=== PATIENT | female | born 1960 | race African-American/Black ===

== ENCOUNTER → 2020-09-29 | Outpatient (CLI) | payer MEDICARE ==
--- NOTE | 2020-09-30 07:23 | XR ---
EXAMINATION TYPE: XR chest 2V DATE OF EXAM: 09/29/2020 COMPARISON: NONE HISTORY: Shortness of breath TECHNIQUE: Frontal and lateral views of the chest are obtained. FINDINGS: Scattered senescent parenchymal changes noted. Hyperinflation compatible with COPD. No evidence for infiltrate. No evidence for atelectasis. Heart size is stable. There is prominence of the aortic arch and underlying aneurysm is difficult to exclude. Correlate cli nically. No evidence for hilar prominence. Degenerative changes dorsal spine. IMPRESSION: 1. No evidence for acute pulmonary disease. Correlate for aortic aneurysm.
== END | disposition home or self-care (01) ==
LOC: RADXRMAIN 18:00
PROVIDERS: ATTEND Family Medicine
DX: R06.02 Shortness of breath (principal)
CPT/HCPCS: 71046

== ENCOUNTER → 2020-09-30 | Outpatient (CLI) | payer MEDICARE ==
--- NOTE | 2020-09-30 10:59 | CT ---
EXAMINATION TYPE: CT brain wo con DATE OF EXAM: 09/30/2020 COMPARISON: None HISTORY: Dizziness/headache CT DLP: 953.[address] of the brain was performed. The ventricles, basal cisterns and sulci overlying the cerebral convexities demonstrate mild enlargem ent. There is no evidence for intracranial hemorrhage or sulcal effacement. There is decreased attenuation about the periventricular white matter and deep white matter of both c erebral hemispheres, compatible with chronic small vessel ischemia. Differential diagnosis does inclu de demyelination. No mass effects are seen.No midline shift. Osseous calvarium is intact. If symptoms persist consider MRI. IMPRESSION: 1. Age related atrophic and chronic small vessel ischemic change without acute intracranial process s een at this time.
== END | disposition home or self-care (01) ==
LOC: RADCTMAIN 10:15
PROVIDERS: ATTEND Family Medicine
DX: I67.82 Cerebral ischemia (principal)
CPT/HCPCS: 70450

== ENCOUNTER → 2020-09-30 | Outpatient (CLI) | payer MEDICARE ==
--- NOTE | 2020-09-30 12:55 | US ---
EXAMINATION TYPE: US venous doppler duplex LE RT DATE OF EXAM: 09/30/2020 11:00 AM COMPARISON: NONE CLINICAL HISTORY: R79.1 POSITIVE DIMER. Elevated labs, right leg numbness, SIDE PERFORMED: Right TECHNIQUE: The lower extremity deep venous system is examined utilizing real time linear array sonog lucy with graded compression, doppler sonography and color-flow sonography. VESSELS IMAGED: Common Femoral Vein Deep Femoral Vein Greater Saphenous Vein * Femoral Vein Popliteal Vein Small Saphenous Vein * Proximal Calf Veins (* superficial vessels) Right Leg: Negative for DVT. The right common femoral vein could not be compressed in one area due t o patient's pain. IMPRESSION: 1. No evidence of deep venous thrombosis in the right lower extremity veins. The right common femoral vein cannot be compressed in one area due to patient's pain.
== END | disposition home or self-care (01) ==
LOC: RADUSWWP 10:36
PROVIDERS: ATTEND Family Medicine
DX: R79.1 Abnormal coagulation profile (principal)

== ENCOUNTER → 2020-10-10 | Outpatient (CLI) | payer MEDICARE, BC ==
--- NOTE | 2020-10-10 12:34 | US ---
EXAMINATION TYPE: US kidneys/renal and bladder DATE OF EXAM: 10/10/2020 COMPARISON: NONE CLINICAL HISTORY: 60-year-old female N18.30 CKD. TECHNIQUE: Multiple sonographic images of the kidneys and bladder are obtained. FINDINGS: EXAM MEASUREMENTS: Right Kidney: 8.7 x 4.2 x 4.2 cm Left Kidney: 7.4 x 3.2 x 3.8 cm Right Kidney: small in size Left Kidney: small in size Bladder: Underdistention limits its evaluation. Some tumefactive sludge or gravel is noted in the gallbladder. Sonographic Toure sign is reported po sitive. IMPRESSION: 1. No hydronephrosis. Small size of the kidneys suggesting chronic medical renal disease. 2. There is some tumefactive sludge or gravel in the gallbladder. No abnormal distention or surroundi ng fluid. However, incidentally, sonographic Toure sign is reported positive further clinical correl ation recommended for any right upper quadrant pain or concern for acute or chronic cholecystitis. HI DA scan if indicated.
== END | disposition home or self-care (01) ==
LOC: RADUSWWP 08:53
PROVIDERS: ATTEND Family Medicine
DX: N18.30 Chronic kidney disease, stage 3 unspecified (principal)
CPT/HCPCS: 76770

== ENCOUNTER 2020-10-14 11:29 | Inpatient (IN) | payer MEDICARE ==
[2020-10-14] MEDS ORDERED: NITROGLYCERIN OINT 1 INCH/GM PACKET TOPICAL STA (11:48)
[2020-10-14] MEDS ORDERED: ASPIRIN 81 MG PO STA (11:48)
--- NOTE | 2020-10-14 11:58 | ED ---
General Adult HPI - General Chief complaint: Chest Pain Stated complaint: Chest Pain Time Seen by Provider: 10/14/20 11:43 Source: patient, RN notes reviewed Mode of arrival: ambulatory Limitations: no limitations - History of Present Illness Initial comments: Patient is a pleasant 60-year-old female presenting to the emergency Department with complaints of chest discomfort. Onset of symptoms was a couple of days ago. Discomfort is steady and rated 5/10 without radiation. Discomfort is difficult to describe. Patient does have some occasional associated dyspnea. No nausea. No diaphoresis. No history of similar symptoms previously. Patient did have CABG in 2018 however did not have symptoms prior to that. Patient did recently find out that she has gallstones. - Related Data Home Medications Medication Instructions Recorded Confirmed Acetaminophen Tab [Tylenol Tab] 1,000 mg PO BID 10/14/20 10/14/20 Aspirin EC [Ecotrin Low Dose] 81 mg PO DAILY 10/14/20 10/14/20 Atorvastatin [Lipitor] 40 mg PO DAILY 10/14/20 10/14/20 Carvedilol [Coreg] 25 mg PO BID 10/14/20 10/14/20 DULoxetine HCL [Cymbalta] 60 mg PO DAILY 10/14/20 10/14/20 Multivitamins, Thera [Multivitamin 1 tab PO DAILY 10/14/20 10/14/20 (formulary)] NIFEdipine XL [Procardia XL] 60 mg PO DAILY 10/14/20 10/14/20 Topiramate [Topamax] 50 mg PO BID 10/14/20 10/14/20 Allergies Allergy/AdvReac Type Severity Reaction Status Date / Time Iodinated Contrast Media AdvReac Rash/Hives Verified 10/14/20 13:03 Review of Systems ROS Statement: Those systems with pertinent positive or pertinent negative responses have been documented in the HPI. ROS Other: All systems not noted in ROS Statement are negative. Constitutional: Denies: fever Eyes: Denies: eye pain ENT: Denies: ear pain Respiratory: Reports: as per HPI. Denies: cough Cardiovascular: Reports: as per HPI, chest pain Endocrine: Denies: fatigue Gastrointestinal: Reports: as per HPI, abdominal pain Genitourinary: Denies: urgency, dysuria Musculoskeletal: Denies: back pain Skin: Denies: rash Neurological: Denies: weakness Past Medical History Additional Past Medical History / Comment(s): AAA History of Any Multi-Drug Resistant Organisms: None Reported Additional Past Surgical History / Comment(s): AAA repair Past Psychological History: Depression Smoking Status: Never smoker Past Alcohol Use History: None Reported Past Drug Use History: None Reported General Exam Limitations: no limitations General appearance: alert, in no apparent distress Head exam: Present: normocephalic Eye exam: Present: normal appearance Neck exam: Present: normal inspection Respiratory exam: Present: normal lung sounds bilaterally, chest wall tenderness Cardiovascular Exam: Present: regular rate, normal rhythm Expanded Peripheral pulses: 2+: Radial (R), Radial (L), Dorsalis Pedis (R), Dorsalis Pedis (L) GI/Abdominal exam: Present: soft, tenderness (Mild tenderness epigastric and right upper quadrant). Absent: distended Extremities exam: Present: normal inspection. Absent: pedal edema, calf tenderness Neurological exam: Present: alert Psychiatric exam: Present: normal affect, normal mood Skin exam: Present: normal color Course Vital Signs 10/14/20 10/14/20 10/14/20 11:33 11:59 12:42 Temperature 97.9 F Pulse Rate 80 82 57 L Respiratory 18 16 16 Rate Blood Pressure 138/83 146/79 150/85 O2 Sat by Pulse 100 99 98 Oximetry EKG Findings - EKG Comments: EKG Findings:: Normal sinus rhythm with a rate of 80. WV 156. QRS 90. QT 408. QTC 470. Normal axis. RSR V1. No acute ST change. Medical Decision Making - Medical Decision Making Patient was reevaluated and updated. Case was discussed with Dr. Joshua, covering for Dr. Muller who will admit. She would prefer to scan over CT which was ordered. - Lab Data Result diagrams: 10/14/20 11:55 10/14/20 11:55 Lab Results 10/14/20 10/14/20 10/14/20 Range/Units 11:55 11:55 11:55 WBC 3.8 (3.8-10.6) k/uL RBC 4.06 (3.80-5.40) m/uL Hgb 12.4 (11.4-16.0) gm/dL Hct 39.7 (34.0-46.0) % MCV 97.9 (80.0-100.0) fL MCH 30.5 (25.0-35.0) pg MCHC 31.2 (31.0-37.0) g/dL RDW 13.5 (11.5-15.5) % Plt Count 207 (150-450) k/uL MPV 6.8 Neutrophils % 48 % Lymphocytes % 37 % Monocytes % 9 % Eosinophils % 2 % Basophils % 1 % Neutrophils # 1.8 (1.3-7.7) k/uL Lymphocytes # 1.4 (1.0-4.8) k/uL Monocytes # 0.3 (0-1.0) k/uL Eosinophils # 0.1 (0-0.7) k/uL Basophils # 0.0 (0-0.2) k/uL PT 10.9 (9.0-12.0) sec INR 1.0 (<1.2) APTT 24.1 (22.0-30.0) sec D-Dimer 13.75 H (<0.60) mg/L FEU Sodium 144 (137-145) mmol/L Potassium 3.9 (3.5-5.1) mmol/L Chloride 111 H (98-107) mmol/L Carbon Dioxide 22 (22-30) mmol/L Anion Gap 11 mmol/L BUN 18 H (7-17) mg/dL Creatinine 1.81 H (0.52-1.04) mg/dL Est GFR (CKD-EPI)AfAm 34 (>60 ml/min/1.73 sqM) Est GFR (CKD-EPI)NonAf 30 (>60 ml/min/1.73 sqM) Glucose 114 H (74-99) mg/dL Calcium 9.9 (8.4-10.2) mg/dL Magnesium 2.2 (1.6-2.3) mg/dL Total Bilirubin 0.6 (0.2-1.3) mg/dL AST 30 (14-36) U/L ALT 22 (4-34) U/L Alkaline Phosphatase 128 H (38-126) U/L Troponin I (0.000-0.034) ng/mL NT-Pro-B Natriuret Pep pg/mL Total Protein 8.4 H (6.3-8.2) g/dL Albumin 4.4 (3.5-5.0) g/dL 10/14/20 10/14/20 Range/Units 11:55 11:55 WBC (3.8-10.6) k/uL RBC (3.80-5.40) m/uL Hgb (11.4-16.0) gm/dL Hct (34.0-46.0) % MCV (80.0-100.0) fL MCH (25.0-35.0) pg MCHC (31.0-37.0) g/dL RDW (11.5-15.5) % Plt Count (150-450) k/uL MPV Neutrophils % % Lymphocytes % % Monocytes % % Eosinophils % % Basophils % % Neutrophils # (1.3-7.7) k/uL Lymphocytes # (1.0-4.8) k/uL Monocytes # (0-1.0) k/uL Eosinophils # (0-0.7) k/uL Basophils # (0-0.2) k/uL PT (9.0-12.0) sec INR (<1.2) APTT (22.0-30.0) sec D-Dimer (<0.60) mg/L FEU Sodium (137-145) mmol/L Potassium (3.5-5.1) mmol/L Chloride (98-107) mmol/L Carbon Dioxide (22-30) mmol/L Anion Gap mmol/L BUN (7-17) mg/dL Creatinine (0.52-1.04) mg/dL Est GFR (CKD-EPI)AfAm (>60 ml/min/1.73 sqM) Est GFR (CKD-EPI)NonAf (>60 ml/min/1.73 sqM) Glucose (74-99) mg/dL Calcium (8.4-10.2) mg/dL Magnesium (1.6-2.3) mg/dL Total Bilirubin (0.2-1.3) mg/dL AST (14-36) U/L ALT (4-34) U/L Alkaline Phosphatase (38-126) U/L Troponin I <0.012 (0.000-0.034) ng/mL NT-Pro-B Natriuret Pep 283 pg/mL Total Protein (6.3-8.2) g/dL Albumin (3.5-5.0) g/dL Disposition Clinical Impression: Chest pain Disposition: ADMITTED IP TO THIS HOSP Is patient prescribed a controlled substance at d/c from ED?: No Referrals: Leah Chamorro MD [Primary Care Provider] - 1-2 days Decision Time: 13:53
[2020-10-14 12:15] LABS: Basophils % (A) 1 %; Eosinophils # (A) 0.1 k/uL (0-0.7); Eosinophils % (A) 2 %; HCT 39.7 % (34.0-46.0); HGB 12.4 gm/dL (11.4-16.0); Lymphocytes # (A) 1.4 k/uL (1.0-4.8); Lymphocytes % (A) 37 %; MCH 30.5 pg (25.0-35.0); MCHC 31.2 g/dL (31.0-37.0); MCV 97.9 fL (80.0-100.0); Mean Platelet Volume 6.8; Monocytes # (A) 0.3 k/uL (0-1.0); Monocytes % (A) 9 %; Neutrophils # (A) 1.8 k/uL (1.3-7.7); Neutrophils % (A) 48 %; Platelet Count 207 k/uL (150-450); RBC 4.06 m/uL (3.80-5.40); RDW 13.5 % (11.5-15.5); WBC 3.8 k/uL (3.8-10.6)
[2020-10-14 12:26] LABS: Albumin 4.4 g/dL (3.5-5.0); Calcium 9.9 mg/dL (8.4-10.2); Magnesium 2.2 mg/dL (1.6-2.3); Potassium 3.9 mmol/L (3.5-5.1); Total Bilirubin 0.6 mg/dL (0.2-1.3); Total Protein 8.4 g/dL (6.3-8.2)
[2020-10-14 12:45] LABS: Partial Thromboplastin Time 24.1 sec (22.0-30.0); Prothrombin Time 10.9 sec (9.0-12.0)
[2020-10-14 12:51] LABS: D-Dimer 13.75 mg/L FEU (<0.60)
--- NOTE | 2020-10-14 12:59 | XR ---
EXAMINATION TYPE: XR chest 2V DATE OF EXAM: 10/14/2020 COMPARISON: 09/30/2019 oh INDICATION: Chest pain TECHNIQUE: Frontal and lateral views of the chest are obtained. FINDINGS: The heart size is normal. The pulmonary vasculature is normal. The lungs are clear. Sternotomy wires are present. IMPRESSION: 1. No acute pulmonary process.
[2020-10-14] MEDS ORDERED: methylPREDNISolone SOD SUCCI 125 MG/2 ML VIAL IV STA (13:43)
[2020-10-14] MEDS ORDERED: diphenhydrAMINE 50 MG/ML 1 ML VIAL IVP STA (13:43)
[2020-10-14] MEDS ORDERED: NITROGLYCERIN SL TABS 0.4 MG TAB SUBLINGUAL PRN (13:57)
--- NOTE | 2020-10-14 13:58 | P.HPIM ---
History of Present Illness H&P Date: 10/14/20 Chief Complaint: Chest pain This is 61-year-old white female who reported to the hospital with chest discomfort. Symptoms are a couple days ago, symptoms have been intermittent, moderate in severity 5/10 without radiation. She describes the pain as substernal. She denies nausea or vomiting. She denies subjective fever or chills. No cough, no hematuria dysuria hematemesis or hematochezia. At the time of examination patient does not appear to be in distress but still has mild to moderate chest pain. Review of Systems 10 systems reviewed, pertinent positive and negative findings as in HPI. Chest pain, no nausea vomiting or dizziness Past Medical History Additional Past Medical History / Comment(s): AAA History of Any Multi-Drug Resistant Organisms: None Reported Additional Past Surgical History / Comment(s): AAA repair Past Psychological History: Depression Smoking Status: Never smoker Past Alcohol Use History: None Reported Past Drug Use History: None Reported Medications and Allergies Home Medications Medication Instructions Recorded Confirmed Type Acetaminophen Tab [Tylenol Tab] 1,000 mg PO BID 10/14/20 10/14/20 History Aspirin EC [Ecotrin Low Dose] 81 mg PO DAILY 10/14/20 10/14/20 History Atorvastatin [Lipitor] 40 mg PO DAILY 10/14/20 10/14/20 History Carvedilol [Coreg] 25 mg PO BID 10/14/20 10/14/20 History DULoxetine HCL [Cymbalta] 60 mg PO DAILY 10/14/20 10/14/20 History Multivitamins, Thera [Multivitamin 1 tab PO DAILY 10/14/20 10/14/20 History (formulary)] NIFEdipine XL [Procardia XL] 60 mg PO DAILY 10/14/20 10/14/20 History Topiramate [Topamax] 50 mg PO BID 10/14/20 10/14/20 History Allergies Allergy/AdvReac Type Severity Reaction Status Date / Time Iodinated Contrast Media AdvReac Rash/Hives Verified 10/14/20 13:03 Physical Exam Vitals: Vital Signs Temp Pulse Resp BP Pulse Ox 10/14/20 12:42 57 L 16 150/85 98 10/14/20 11:59 82 16 146/79 99 10/14/20 11:33 97.9 F 80 18 138/83 100 Intake and Output 10/13/20 10/14/20 10/14/20 22:59 06:59 14:59 Other: Weight 108.862 kg Constitutional: No acute distress, conversant, pleasant Eyes: Anicteric sclerae, moist conjunctiva, no lid-lag, PERRLA ENMT: NC/AT,Oropharynx clear, no erythema, exudates Neck:Supple, FROM, no masses, or JVD, No carotid bruits; No thyromegaly Lungs: Clear to auscultation, Clear to percussion, Normal respiratory effort, no accessory muscle use Cardiovascular: Heart regular in rate and rhythm, No murmurs, gallops, or rubs no peripheral edema, scar from history of aortic dissection Abdominal: Soft Nontender, non distended, no guarding, no rebound or rigidity, Normoactive bowel sounds Skin: Normal temperature, tone, texture, turgor, No induration No subcutaneous nodules, No rash, lesions, No ulcers Extremities:No digital cyanosis No clubbing, Pedal pulses intact and symmetrical Radial pulses intact and symmetrical Normal gait and station, No calf tenderness Psychiatric: Alert and oriented to person, place and time, Appropriate affect Intact judgement Neuro: Muscles Strength 5/5 in all 4 extremities, Sensation to light touch grossly present throughout, Cranial nerves II-XII grossly intact. No focal sensory deficits Results CBC & Chem 7: 10/14/20 11:55 10/14/20 11:55 Labs: Abnormal Lab Results - Last 24 Hours (Table) 10/14/20 10/14/20 Range/Units 11:55 11:55 D-Dimer 13.75 H (<0.60) mg/L FEU Chloride 111 H (98-107) mmol/L BUN 18 H (7-17) mg/dL Creatinine 1.81 H (0.52-1.04) mg/dL Glucose 114 H (74-99) mg/dL Alkaline Phosphatase 128 H (38-126) U/L Total Protein 8.4 H (6.3-8.2) g/dL Assessment and Plan Plan: 1. Chest pain in the setting of coronary artery disease and history of aortic dissection: Continue to check cardiac enzymes, place on telemetry, cardiology consultation. Supportive care. Obtain 2-D echo 2. History of aortic dissection status post repair in 2018 with elevated d- dimer: CT chest to rule out dissection. Cardiology consultation. 3. 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 Obtain CT chest abdomen with contrast. Discussed with the patient the risk of worsening renal function renal function with contrast. She is willing to take that risk. 4. Morbid obesity: BMI 45.3 5. History of abdominal aortic aneurysm: Obtain CT abdomen for further evaluation. 6. Hyperlipidemia: Continue statin 7. Essential hypertension: Continue Procardia 8. Depression: Continue duloxetine DVT prophylaxis: SCDs Disposition: Home in 1-2 days, pending clinical progression
--- NOTE | 2020-10-14 15:48 | CT ---
EXAMINATION TYPE: CT angio thor/abd pel aorta DATE OF EXAM: 10/14/2020 COMPARISON: None HISTORY: 60-year-old female Chest pain with history of aortic dissection. TECHNIQUE: Contiguous axial scanning of the chest, abdomen, and pelvis performed with IV Contrast, pa tient injected with 80 mL of Isovue 370. Coronal/sagittal reconstructions performed. 3-D reconstructi ons generated on a dedicated independent workstation. CT DLP: 1667.1 mGycm Automated exposure control for dose reduction was used. FINDINGS: CHEST: Median sternotomy wires. Heart upper limits of normal in size without pericardial effusion. No thoracic lymphadenopathy by CT size criteria. There are trace effusions on both sides. Mild patchy atelectasis of the posterior right base. VASCULATURE: Aortic root mildly aneurysmal at 4.1 cm. Suspected ascending aortic interposition graft. Bovine configuration to the aortic arch. There is evidence of aortic dissection beginning at the distal arch and descending thoracic aorta ext ending from the level of the left subclavian artery. The origin of the subclavian artery serves as a fenestration to help opacify the false lumen. The distal aortic arch is aneurysmal at 5.2 cm. The false lumen at this level shows prominent mural b ased plaque/thrombus measuring up to 2.3 cm thick, possible thrombosed old false lumen. Middescending thoracic aorta aneurysmal at 3.7 cm. Distal descending thoracic aorta aneurysmal at 3.3 cm. The celiac axis arises from the false lumen. SMA arises from the true lumen. Right renal artery arises from the true lumen. Left renal artery and its accessory branch arises from the false lumen. SCARLET arises from the false lumen. Dissection flap continues and terminates in the proximal left common iliac artery. There is relative equivalent opacification within both the true and false lumen by the level of the c eliac axis. ABDOMEN: Arterial phase imaging of the liver, gallbladder, spleen, pancreas show no gross abnormality. Small cortical hypodensities in the kidneys too small for accurate CT characterization, likely small cysts. There is slight delayed assessment of the left kidney due to vasculature from the false lumen. Multiple renal cortical defects are present suggesting sequela of prior vascular or infectious insul ts. No dilated small bowel, free fluid, or free air. No mesenteric or retroperitoneal lymphadenopathy. Mild stool. Left-sided colonic diverticulosis. NO PERICOLONIC INFLAMMATORY CHANGE. PELVIS: Bladder urine distended. Uterus surgically absent. Neither ovary visualized. There is trace cul-de-sa c free fluid. Pelvic lymph nodes. No abnormal fluid collection in the pelvis. BONES: There is left L5 hemisacralization. Facet arthropathy mid to lower lumbar spine. Prominent anterior e ndplate spondylosis mid to lower thoracic spine. IMPRESSION: 1. DISSECTION OF THE DESCENDING AORTA STARTING AT THE LEVEL OF THE LEFT SUBCLAVIAN ARTERY. Dissection extends all the way down into the proximal left common iliac artery. Correlate with appearance of ashutosh chávez's known aortic dissection by utilizing outside imaging to determine if this is an acute on mold insert changer renan dissection or if this represents the patient's known aortic dissection. 2. The distal arch is aneurysmal at 5.2 cm. The false lumen at this level shows prominent mural-based plaque/thrombus measuring up to 2.3 cm thick, possible thrombosed old false lumen in the event of an acute on chronic dissection. 3. Suspect prior ascending aortic interposition graft. 4. Mid descending thoracic aorta aneurysmal at 3.7 cm and distal descending thoracic aorta aneurysmal at 3.3 cm. 5. The celiac axis, left renal artery, and SCARLET all arise from the false lumen though there is relativ e equivalent opacification within both the true and false lumen by the level of the celiac axis. 6. Enhancement of the left kidney is only slightly delayed compared to the right as its vascular supp ly arises from the false lumen. 7. Trace pleural effusions. 8. Left-sided colonic diverticulosis and trace cul-de-sac free fluid.
[2020-10-14] MEDS ORDERED: MORPHINE SULFATE 4 MG/ML SYRINGE IVP STA (16:03)
--- NOTE | 2020-10-14 17:36 | P.GSCN ---
History of Present Illness Consult date: 10/14/20 History of present illness: Tomas is a 61-year-old black female who presented to the hospital with substernal chest pain, and when delineated to that this is more so in her scarring area rather than in her substernal mid chest or back. She has Has a history of a ascending and descending thoracic aortic dissection and is status post an open ascending aortic repair in 2018 out in [place]. Reportedly at the time she was told she will need to monitor the rest of her aorta because it may become dilated from being weekend as well as having decreased left kidney f unction of about 40%. This is all obtained from a family member at the bedside. She states that the pain she currently has is nothing like the pain she had when she initially had the dissection. She denies any fevers, chills, nausea or vomiting. She states that her blood pressures have been relatively well controlled. At the time of her dissection she also had issues with strokes and had right lower extremity foot drop and weakness. She denies any complaints of leg pains. She denies any complaint of upper extremity pains. Past Medical History Additional Past Medical History / Comment(s): AAA History of Any Multi-Drug Resistant Organisms: None Reported Additional Past Surgical History / Comment(s): AAA repair Past Psychological History: Depression Smoking Status: Never smoker Past Alcohol Use History: None Reported Past Drug Use History: None Reported Medications and Allergies Home Medications Medication Instructions Recorded Confirmed Type Acetaminophen Tab [Tylenol Tab] 1,000 mg PO BID 10/14/20 10/14/20 History Aspirin EC [Ecotrin Low Dose] 81 mg PO DAILY 10/14/20 10/14/20 History Atorvastatin [Lipitor] 40 mg PO DAILY 10/14/20 10/14/20 History Carvedilol [Coreg] 25 mg PO BID 10/14/20 10/14/20 History DULoxetine HCL [Cymbalta] 60 mg PO DAILY 10/14/20 10/14/20 History Multivitamins, Thera [Multivitamin 1 tab PO DAILY 10/14/20 10/14/20 History (formulary)] NIFEdipine XL [Procardia XL] 60 mg PO DAILY 10/14/20 10/14/20 History Topiramate [Topamax] 50 mg PO BID 10/14/20 10/14/20 History Allergies Allergy/AdvReac Type Severity Reaction Status Date / Time Iodinated Contrast Media AdvReac Rash/Hives Verified 10/14/20 13:03 Surgical - Exam Vital Signs Temp Pulse Resp BP Pulse Ox 97.9 F 80 18 138/83 100 10/14/20 11:33 10/14/20 11:33 10/14/20 11:33 10/14/20 11:33 10/14/20 11:33 Gen. is a pleasant cooperative morbidly obese short female in no acute distress. HEENT is normocephalic, atraumatic, extraocular motion intact. Heart appears regular in rate and rhythm. Neck is supple. Trachea is midline. There is a keloid scar over her sternotomy site. Her lungs are clear bilaterally. Her abdomen is obese, nontender nondistended. Femoral pulses are palpable but difficult to palpate. Bilateral lower extremities are warm and dry. She has equal palpable dorsalis pedis pulses bilaterally. Palpable radial pulses are equal bilaterally. Normal mood and affect. Cranial nerves II through XII grossly intact. Right lower extremity brace intact Results Computed tomography scan is reviewed. There is a dissection at the level of the left subclavian artery spanning down to the aortic bifurcation. The celiac artery comes off the false lumen, the superior mesenteric comes mostly off the true lumen. The right renal is off the true lumen. The left renal comes off the false lumen. There is true lumen at the right iliac and partial dissection through the left. No evidence of end organ malperfusion on this image - Labs 10/14/20 11:55 10/14/20 11:55 Abnormal Lab Results - Last 24 Hours (Table) 10/14/20 10/14/20 Range/Units 11:55 11:55 D-Dimer 13.75 H (<0.60) mg/L FEU Chloride 111 H (98-107) mmol/L BUN 18 H (7-17) mg/dL Creatinine 1.81 H (0.52-1.04) mg/dL Glucose 114 H (74-99) mg/dL Alkaline Phosphatase 128 H (38-126) U/L Total Protein 8.4 H (6.3-8.2) g/dL Diabetes panel 10/14/20 Range/Units 11:55 Sodium 144 (137-145) mmol/L Potassium 3.9 (3.5-5.1) mmol/L Chloride 111 H (98-107) mmol/L Carbon Dioxide 22 (22-30) mmol/L BUN 18 H (7-17) mg/dL Creatinine 1.81 H (0.52-1.04) mg/dL Glucose 114 H (74-99) mg/dL Calcium 9.9 (8.4-10.2) mg/dL AST 30 (14-36) U/L ALT 22 (4-34) U/L Alkaline Phosphatase 128 H (38-126) U/L Total Protein 8.4 H (6.3-8.2) g/dL Albumin 4.4 (3.5-5.0) g/dL Calcium panel 10/14/20 Range/Units 11:55 Calcium 9.9 (8.4-10.2) mg/dL Albumin 4.4 (3.5-5.0) g/dL Pituitary panel 10/14/20 Range/Units 11:55 Sodium 144 (137-145) mmol/L Potassium 3.9 (3.5-5.1) mmol/L Chloride 111 H (98-107) mmol/L Carbon Dioxide 22 (22-30) mmol/L BUN 18 H (7-17) mg/dL Creatinine 1.81 H (0.52-1.04) mg/dL Glucose 114 H (74-99) mg/dL Calcium 9.9 (8.4-10.2) mg/dL Adrenal panel 10/14/20 Range/Units 11:55 Sodium 144 (137-145) mmol/L Potassium 3.9 (3.5-5.1) mmol/L Chloride 111 H (98-107) mmol/L Carbon Dioxide 22 (22-30) mmol/L BUN 18 H (7-17) mg/dL Creatinine 1.81 H (0.52-1.04) mg/dL Glucose 114 H (74-99) mg/dL Calcium 9.9 (8.4-10.2) mg/dL Total Bilirubin 0.6 (0.2-1.3) mg/dL AST 30 (14-36) U/L ALT 22 (4-34) U/L Alkaline Phosphatase 128 H (38-126) U/L Total Protein 8.4 H (6.3-8.2) g/dL Albumin 4.4 (3.5-5.0) g/dL Assessment and Plan Assessment: Descending thoracic aortic and abdominal aortic dissection, likely chronic Thoracic aortic aneurysm, 5.2 cm Superficial sternal/chest pain Keloid scar Previous ascending aortic repair Plan: At this time I do believe it is most likely the findings related to this image are chronic based upon patient and family story. She maintains palpable distal pulses and has no evidence of end organ malperfusion on clinical exam. She does have slight elevations in her creatinine which sounds like it was a known finding although they do not exactly remember what numbers she had noted a remember the size of her thoracic aorta. Given these findings I do believe she would best benefit from monitoring to ensure that she does not have any significant changes since this is our first hospitalization of this patient. She will need some fluid hydration given her CT angiogram with her CKD. She will need follow-up imaging every 6 months to evaluate and ensure the thoracic aorta does not become significantly more aneurysmal. Continue tight blood pressure control.
--- NOTE | 2020-10-14 18:49 | ECHOF ---
Referral Reason: MEASUREMENTS -------- HEIGHT: 154.9 cm WEIGHT: 108.9 kg BP: IVSd: 1.5 cm (0.6 - 1.1) LVIDd: 3.2 cm (3.9 - 5.3) LVPWd: 1.1 cm (0.6 - 1.1) IVSs: 1.6 cm LVIDs: 2.3 cm LVPWs: 2.0 cm Ao Diam: 3.4 cm (2.0 - 3.7) AV Cusp: 1.9 cm (1.5 - 2.6) LA Diam: 2.9 cm (2.7 - 3.8) MV EXCURSION: 17.354 mm (> 18.000) MV EF SLOPE: 108 mm/s (70 - 150) EPSS: 0.8 cm MV E Leonides: 0.70 m/s MV DecT: 188 ms MV A Leonides: 0.89 m/s MV E/A Ratio: 0.79 AR PHT: 1450 ms RAP: 5.00 mmHg RVSP: 32.51 mmHg FINDINGS -------- This was a technically difficult study with suboptimal views. The left ventricular size is normal. There is mild concentric left ventricular hypertrophy. Overa ll left ventricular systolic function is normal with, an EF between 55 - 60 %. The RV was not well visualized. The left atrial size is normal. The right atrium was not well visualized. xx ml of Lumason was utilized for enhancement of images. The aortic valve was not well visualized. There is [id number] aortic regurgitation. The mitral valve is normal. There is trace mitral regurgitation. The tricuspid valve appears structurally normal. Mild tricuspid regurgitation present. Right vent ricular systolic pressure is normal at < 35 mmHg. There is no pulmonic regurgitation present. The aortic root size is normal. IVC Not well visulized. There is no pericardial effusion. CONCLUSIONS -------- 1. The left ventricular size is normal. 2. There is mild concentric left ventricular hypertrophy. 3. Overall left ventricular systolic function is normal with, an EF between 55 - 60 %. 4. There is [id number] aortic regurgitation. 5. There is trace mitral regurgitation. 6. Mild tricuspid regurgitation present. 7. There is no pericardial effusion. [employer] MACHINE OPERATOR: Vidya Larson RDCS
[2020-10-14] MEDS: TOPIRAMATE 25 MG TAB PO SCH (21:30)
[2020-10-14] MEDS: carvediloL 12.5 MG TAB PO SCH (21:30)
[2020-10-14] MEDS: ATORVASTATIN 40 MG TAB PO SCH (21:30)
[2020-10-14] MEDS: NITROGLYCERIN OINT 1 INCH/GM PACKET TOPICAL SCH (21:31)
[2020-10-14] MEDS: SODIUM CHLORIDE 0.9% 1,000 ML IV SCH ×2 (21:35→22:27)
[2020-10-14] MEDS: MORPHINE SULFATE 4 MG/ML SYRINGE IVP PRN (22:27)
[2020-10-14 23:18] VITALS: RESP 18
[2020-10-15] MEDS: NITROGLYCERIN OINT 1 INCH/GM PACKET TOPICAL SCH ×2 (02:39→06:33)
[2020-10-15 08:15] LABS: Basophils % (A) 0 %; Eosinophils % (A) 0 %; HCT 37.2 % (34.0-46.0); Hypochromasia Slight; Lymphocytes # (A) 0.8 k/uL (1.0-4.8); Lymphocytes % (A) 14 %; MCH 31.7 pg (25.0-35.0); MCHC 32.1 g/dL (31.0-37.0); MCV 98.8 fL (80.0-100.0); Mean Platelet Volume 6.9; Monocytes # (A) 0.2 k/uL (0-1.0); Monocytes % (A) 3 %; Neutrophils # (A) 4.7 k/uL (1.3-7.7); Neutrophils % (A) 82 %; Platelet Count 194 k/uL (150-450); RBC 3.77 m/uL (3.80-5.40); RDW 12.9 % (11.5-15.5); WBC 5.8 k/uL (3.8-10.6)
[2020-10-15 08:27] LABS: Albumin 4.2 g/dL (3.5-5.0); Calcium 9.2 mg/dL (8.4-10.2); Potassium 4.2 mmol/L (3.5-5.1); Total Bilirubin 0.3 mg/dL (0.2-1.3); Total Protein 8.1 g/dL (6.3-8.2)
[2020-10-15] MEDS ORDERED: ATORVASTATIN 40 MG TAB PO SCH (09:00)
[2020-10-15] MEDS ORDERED: ASPIRIN 325 MG TAB PO SCH (09:00)
[2020-10-15] MEDS: ASPIRIN 81 MG PO SCH (09:31)
[2020-10-15] MEDS: ATORVASTATIN 40 MG TAB PO SCH (09:31)
[2020-10-15] MEDS: TOPIRAMATE 25 MG TAB PO SCH ×2 (09:32→20:38)
[2020-10-15] MEDS: carvediloL 12.5 MG TAB PO SCH ×2 (09:33→20:37)
[2020-10-15] MEDS: DULoxetine HCL 60 MG CAPSULE.DR PO SCH (09:33)
[2020-10-15] MEDS: MORPHINE SULFATE 4 MG/ML SYRINGE IVP PRN ×3 (09:36→21:59)
--- NOTE | 2020-10-15 11:00 | P.CRDCN ---
History of Present Illness Consult date: 10/15/20 History of present illness: HISTORY OF PRESENT ILLNESS: This is a 60-year-old female with a past medical history significant for hypertension, hyperlipidemia, chronic kidney disease, and CVA with residual right-sided weakness and aortic dissection with surgical repair. Patient recently moved to [place] from [place] and established in the office with Dr. Santos on 10/05/2020. We have been asked to see the patient in consultation for chest pain. Patient examined at the bedside. Patient states she has been having intermittent chest pain over the past month. She states the pain has increased in severity over the past couple days. She states the pain is near her sternal incision and feels like a stabbing pain. She also reports some left arm pain but states this does not occur in conjunction with her chest pain. The pain is not worse with deep inspiration. She does state it is tender to palpation around her surgical scar. EKG reveals sinus mechanism with no signs of acute ischemia Chest xray negative for acute process Laboratory data: WBC 5.8. Hemoglobin 12.0. Pletal count 194. Sodium 141. Potassium 4.2. BUN 20. Creatinine 1.78. Troponin negative 3 Current home cardiac medications include Procardia XL 60 mg daily, carvedilol 25 mg twice a day, atorvastatin 40 mg daily, and aspirin 81 mg daily Echocardiogram completed revealed ejection fraction 55-60%, mild to moderate aortic regurgitation, trace mitral regurgitation, and mild tricuspid regurgitation REVIEW OF SYSTEMS: At the time of my exam: CONSTITUTIONAL: Denies fever or chills. HEENT: Denies blurred vision, vision changes, or eye pain. Denies hemoptysis CARDIOVASCULAR: Denies chest pain. Denies orthopnea. Denies PND. Denies palpitations RESPIRATORY: Denies shortness of breath. GASTROINTESTINAL: Denies abdominal pain. Denies nausea or vomiting. HEMATOLOGIC: Denies bleeding disorders. GENITOURINARY: Denies any blood in urine. SKIN: Denies pruitis. Denies rash. PHYSICAL EXAM: VITAL SIGNS: Reviewed. GENERAL: Well-developed in no acute distress. HEENT: Head is normocephalic. Pupils are equal, round. Sclerae anicteric. Mucous membranes of the mouth are moist. Neck supple. No JVD or thyromegaly LUNGS: Respirations even and unlabored. Lungs diminished bilaterally. HEART: Regular rate and rhythm. S1 and S2 heard. Systolic murmur noted. Tenderness upon palpation of sternal scar. ABDOMEN: Soft. Nondistended. Nontender. EXTREMITIES: Normal range of motion. No clubbing or cyanosis. Peripheral pulses intact. No lower extremity edema NEUROLOGIC: Awake and alert. Oriented x 3. ASSESSMENT: Chest pain, atypical, troponin negative 3 Hypertension Hyperlipidemia History of CVA with right-sided weakness Chronic kidney disease Valvular heart disease History of aortic dissection with surgical repair, 2018 in [place] PLAN: An acute coronary event has been ruled out 2-D echo obtained and reviewed Resume home cardiac medications Patient may be discharged home today from a cardiac standpoint and follow up on an outpatient basis with Dr. Santos Nurse practitioner note has been reviewed by physician. Signing provider agrees with the documented findings, assessment, and plan of care. Past Medical History Past Medical History: Hypertension Additional Past Medical History / Comment(s): AAA History of Any Multi-Drug Resistant Organisms: None Reported Additional Past Surgical History / Comment(s): AAA repair Past Psychological History: Depression Smoking Status: Never smoker Past Alcohol Use History: None Reported Past Drug Use History: None Reported Medications and Allergies Home Medications Medication Instructions Recorded Confirmed Type Acetaminophen Tab [Tylenol Tab] 1,000 mg PO BID 10/14/20 10/14/20 History Aspirin EC [Ecotrin Low Dose] 81 mg PO DAILY 10/14/20 10/14/20 History Atorvastatin [Lipitor] 40 mg PO DAILY 10/14/20 10/14/20 History Carvedilol [Coreg] 25 mg PO BID 10/14/20 10/14/20 History DULoxetine HCL [Cymbalta] 60 mg PO DAILY 10/14/20 10/14/20 History Multivitamins, Thera [Multivitamin 1 tab PO DAILY 10/14/20 10/14/20 History (formulary)] NIFEdipine XL [Procardia XL] 60 mg PO DAILY 10/14/20 10/14/20 History Topiramate [Topamax] 50 mg PO BID 10/14/20 10/14/20 History Allergies Allergy/AdvReac Type Severity Reaction Status Date / Time Iodinated Contrast Media AdvReac Rash/Hives Verified 10/14/20 13:03 Physical Exam Vitals: Vital Signs Temp Pulse Pulse Resp BP BP Pulse Ox 10/15/20 04:00 97.6 F 78 18 122/73 95 10/15/20 02:00 76 18 10/14/20 23:04 97.7 F 76 18 144/78 97 10/14/20 20:28 84 16 126/76 97 10/14/20 14:00 85 16 145/82 96 10/14/20 12:42 57 L 16 150/85 98 10/14/20 11:59 82 16 146/79 99 10/14/20 11:33 97.9 F 80 18 138/83 100 Intake and Output 10/14/20 10/15/20 10/15/20 22:59 06:59 14:59 Intake Total 600 180 Balance 600 180 Intake: Intake, IV Titration 600 Amount Sodium Chloride 0.9% 1, 600 000 ml @ 100 mls/hr IV . Q10H [facility] Rx#:[id number] Oral 180 Other: Weight 108.7 kg Results 10/15/20 07:48 10/15/20 07:48 Cardiac Enzymes 10/14/20 10/14/20 10/14/20 Range/Units 11:55 11:55 16:45 AST 30 (14-36) U/L Troponin I <0.012 <0.012 (0.000-0.034) ng/mL 10/14/20 10/15/20 Range/Units 20:21 07:48 AST 28 (14-36) U/L Troponin I <0.012 (0.000-0.034) ng/mL Coagulation 10/14/20 Range/Units 11:55 PT 10.9 (9.0-12.0) sec APTT 24.1 (22.0-30.0) sec CBC 10/14/20 10/15/20 Range/Units 11:55 07:48 WBC 3.8 5.8 (3.8-10.6) k/uL RBC 4.06 3.77 L (3.80-5.40) m/uL Hgb 12.4 12.0 (11.4-16.0) gm/dL Hct 39.7 37.2 (34.0-46.0) % Plt Count 207 194 (150-450) k/uL Comprehensive Metabolic Panel 10/14/20 10/15/20 Range/Units 11:55 07:48 Sodium 144 141 (137-145) mmol/L Potassium 3.9 4.2 (3.5-5.1) mmol/L Chloride 111 H 109 H (98-107) mmol/L Carbon Dioxide 22 19 L (22-30) mmol/L BUN 18 H 20 H (7-17) mg/dL Creatinine 1.81 H 1.78 H (0.52-1.04) mg/dL Glucose 114 H 163 H (74-99) mg/dL Calcium 9.9 9.2 (8.4-10.2) mg/dL AST 30 28 (14-36) U/L ALT 22 22 (4-34) U/L Alkaline Phosphatase 128 H 96 (38-126) U/L Total Protein 8.4 H 8.1 (6.3-8.2) g/dL Albumin 4.4 4.2 (3.5-5.0) g/dL Current Medications Generic Name Dose Route Start Last Admin Trade Name Freq PRN Reason Stop Dose Admin Aspirin 81 mg 10/15/20 09:00 10/15/20 09:31 Aspirin 81 Mg PO 81 mg DAILY DORENE Administration Atorvastatin Calcium 40 mg 10/14/20 21:00 10/15/20 09:31 Atorvastatin 40 Mg Tab PO 40 mg DAILY DORENE Administration Carvedilol 25 mg 10/14/20 21:00 10/15/20 09:33 Carvedilol 12.5 Mg Tab PO 25 mg BID DORENE Administration Duloxetine HCl 60 mg 10/15/20 09:00 10/15/20 09:33 Duloxetine Hcl 60 Mg Capsule.Dr PO 60 mg DAILY DORENE Administration Sodium Chloride 1,000 mls @ 100 mls/hr 10/14/20 17:00 10/14/20 22:27 Saline 0.9% IV 100 mls/hr .Q10H DORENE Administration Morphine Sulfate 4 mg 10/14/20 21:41 10/15/20 09:36 Morphine Sulfate 4 Mg/Ml Syringe IVP 4 mg Q4HR PRN Administration Pain Nifedipine 60 mg 10/14/20 21:00 10/15/20 09:33 Nifedipine Xl 60 Mg Tab.Er.24 PO Not Given DAILY DORENE Nitroglycerin 0.4 mg 10/14/20 13:57 10/14/20 15:53 Nitroglycerin Sl Tabs 0.4 Mg Tab SUBLINGUAL 0.4 mg Q5M PRN Administration Chest Pain Nitroglycerin 1 inch 10/14/20 18:00 10/15/20 06:33 Nitroglycerin Oint 1 Inch/Gm Packet TOPICAL Not Given Q6HR DORENE Sodium Chloride 10 ml 10/14/20 21:00 10/15/20 09:29 Sodium Chloride 0.9% Flush 10 Ml Syringe IV Not Given BID DORENE Topiramate 50 mg 10/14/20 21:00 10/15/20 09:32 Topiramate 25 Mg Tab PO Not Given BID DORENE Intake and Output 10/14/20 10/15/20 10/15/20 22:59 06:59 14:59 Intake Total 600 180 Balance 600 180 Intake: Intake, IV Titration 600 Amount Sodium Chloride 0.9% 1, 600 000 ml @ 100 mls/hr IV . Q10H [facility] Rx#:[id number] Oral 180 Other: Weight 108.7 kg 10/15/20 07:48 10/15/20 07:48
[2020-10-15 12:08] LABS: Chol/HDL Ratio 2.29
--- NOTE | 2020-10-15 15:18 | P.PN ---
Subjective Progress Note Date: 10/15/20 Pt still having some pain around chest. Denies n/v/c/d, abd pain, palps. Objective - Vital Signs Vital signs: Vital Signs Temp 98.3 F 10/15/20 08:00 Pulse 80 10/15/20 08:00 Resp 18 10/15/20 08:00 BP 117/66 10/15/20 08:00 Pulse Ox 98 10/15/20 08:00 Intake & Output 10/14/20 10/15/20 10/15/20 18:59 06:59 18:59 Intake Total 600 180 Balance 600 180 Weight 108.862 kg 108.7 kg Intake: Intake, IV Titration 600 Amount Sodium Chloride 0.9% 1, 600 000 ml @ 100 mls/hr IV . Q10H [facility] Rx#:[id number] Oral 180 Other: # Voids 1 - Exam Gen: awake, alert HEENT: normocephalic, atraumatic, good hearing acuity, moist mucous membranes Resp: good air exchange, breathing comfortably with no accessory muscle use, clear to auscultation bilaterally CVS: good distal perfusion x 4, regular rate and rhythm, 2 out of 6 soft sys tolic murmur GI: soft, NTTP, ND, appropriate bowel sounds : no SPT, no CVAT, fu catheter not present MSK: no pitting edema, no clubbing Neuro: non-focal, moving all extremities Psych: cooperative, euthymic mood - Labs CBC & Chem 7: 10/15/20 07:48 10/15/20 07:48 Labs: Abnormal Lab Results - Last 24 Hours (Table) 10/14/20 10/14/20 10/15/20 Range/Units 11:55 11:55 07:48 RBC (3.80-5.40) m/uL Lymphocytes # (1.0-4.8) k/uL D-Dimer 13.75 H (<0.60) mg/L FEU Chloride 111 H 109 H (98-107) mmol/L Carbon Dioxide 19 L (22-30) mmol/L BUN 18 H 20 H (7-17) mg/dL Creatinine 1.81 H 1.78 H (0.52-1.04) mg/dL Glucose 114 H 163 H (74-99) mg/dL Alkaline Phosphatase 128 H (38-126) U/L Total Protein 8.4 H (6.3-8.2) g/dL 10/15/20 Range/Units 07:48 RBC 3.77 L (3.80-5.40) m/uL Lymphocytes # 0.8 L (1.0-4.8) k/uL D-Dimer (<0.60) mg/L FEU Chloride (98-107) mmol/L Carbon Dioxide (22-30) mmol/L BUN (7-17) mg/dL Creatinine (0.52-1.04) mg/dL Glucose (74-99) mg/dL Alkaline Phosphatase (38-126) U/L Total Protein (6.3-8.2) g/dL Assessment and Plan Assessment: Chest pain, atypical History of CAD History of aortic dissection -Admitted to telemetry -Echo shows EF 55-60%, mild AR, trace MR/TR -Troponins trended negative -Cardiology and vascular surgical consultations appreciated -Pain control -EKG/nitro when necessary CKD stage IV AAA Obesity, BMI 45.3 Hyperlipidemia Hypertension Depression -IV fluids -Avoid nephrotoxins, renally dose medications -Continue statin, Procardia, duloxetine -Weight loss education DVT PPx: SCDs Dispo: Home tomorrow Pt is Full Code
[2020-10-15] MEDS: SODIUM CHLORIDE 0.9% 1,000 ML IV SCH ×2 (18:02→18:08)
[2020-10-16] MEDS: SODIUM CHLORIDE 0.9% 1,000 ML IV SCH (07:00)
--- NOTE | 2020-10-16 09:01 | P.PN ---
Subjective Progress Note Date: 10/16/20 HISTORY OF PRESENT ILLNESS: This is a 60-year-old female with a past medical history significant for hypertension, hyperlipidemia, chronic kidney disease, and CVA with residual right-sided weakness and aortic dissection with surgical repair. Patient recently moved to [place] from [place] and established in the office with Dr. Santos on 10/05/2020. We have been asked to see the patient in consultation for chest pain. Patient examined at the bedside. Patient states she has been having intermittent chest pain over the past month. She states the pain has increased in severity over the past couple days. She states the pain is near her sternal incision and feels like a stabbing pain. She also reports some left arm pain but states this does not occur in conjunction with her chest pain. The pain is not worse with deep inspiration. She does state it is tender to palpation around her surgical scar. EKG reveals sinus mechanism with no signs of acute ischemia Chest xray negative for acute process Laboratory data: WBC 5.8. Hemoglobin 12.0. Pletal count 194. Sodium 141. Potassium 4.2. BUN 20. Creatinine 1.78. Troponin negative 3 Current home cardiac medications include Procardia XL 60 mg daily, carvedilol 25 mg twice a day, atorvastatin 40 mg daily, and aspirin 81 mg daily Echocardiogram completed revealed ejection fraction 55-60%, mild to moderate aortic regurgitation, trace mitral regurgitation, and mild tricuspid regurgitation 10/16/2020 Patient examined this morning at the bedside. Patient denies shortness of breath. She continues to report discomfort in her sternal incision. Blood pressure this morning 111/62. Heart rate in the 70s. Telemetry reveals sinus mechanism. Patient is hoping to be discharged home this afternoon. PHYSICAL EXAM: VITAL SIGNS: Reviewed. GENERAL: Well-developed in no acute distress. HEENT: Head is normocephalic. Pupils are equal, round. Sclerae anicteric. Mucous membranes of the mouth are moist. Neck supple. No JVD or thyromegaly LUNGS: Respirations even and unlabored. Lungs diminished bilaterally. HEART: Regular rate and rhythm. S1 and S2 heard. Systolic murmur noted. Tenderness upon palpation of sternal scar. ABDOMEN: Soft. Nondistended. Nontender. EXTREMITIES: Normal range of motion. No clubbing or cyanosis. Peripheral pulses intact. No lower extremity edema NEUROLOGIC: Awake and alert. Oriented x 3. ASSESSMENT: Chest pain, atypical, troponin negative 3 Hypertension Hyperlipidemia History of CVA with right-sided weakness Chronic kidney disease Valvular heart disease History of aortic dissection with surgical repair, 2018 in [place] PLAN: Continue current cardiac medications Patient is stable for discharge home today from a cardiac standpoint She may follow up on an outpatient basis with Dr. Santos Nurse practitioner note has been reviewed by physician. Signing provider agrees with the documented findings, assessment, and plan of care. Objective - Vital Signs Vital signs: Vital Signs Temp 97.6 F 10/15/20 20:00 Pulse 76 10/16/20 04:00 Resp 18 10/16/20 04:00 BP 111/62 10/16/20 04:00 Pulse Ox 98 10/16/20 04:00 Intake & Output 10/15/20 10/16/20 10/16/20 18:59 06:59 18:59 Intake Total 180 Balance 180 Weight 111.4 kg Intake: Oral 180 Other: # Voids 1 1 - Labs CBC & Chem 7: 10/15/20 07:48 10/15/20 07:48 Labs: Abnormal Lab Results - Last 24 Hours (Table) 10/15/20 Range/Units 07:48 HDL Cholesterol 63.0 H (40.0-60.0) mg/dL
[2020-10-16] MEDS: carvediloL 12.5 MG TAB PO SCH (09:25)
[2020-10-16] MEDS: ATORVASTATIN 40 MG TAB PO SCH (09:25)
[2020-10-16] MEDS: DULoxetine HCL 60 MG CAPSULE.DR PO SCH (09:25)
[2020-10-16] MEDS: ASPIRIN 81 MG PO SCH (09:25)
[2020-10-16] MEDS: TOPIRAMATE 25 MG TAB PO SCH (09:27)
--- NOTE | 2020-10-16 12:01 | P.DS ---
Providers Date of admission: 10/14/20 13:57 Expected date of discharge: 10/16/20 Attending physician: Felicity Joshua DO Consults: 10/14/20 13:57 Consult Physician Urgent Consulting Provider: Gianni Santos Consult Reason/Comments: cp Do you want consulting provider notified?: Yes [facility] Course: HPI: This is 61-year-old white female who reported to the hospital with chest discomfort. Symptoms are a couple days ago, symptoms have been intermittent, moderate in severity 5/10 without radiation. She describes the pain as substernal. She denies nausea or vomiting. She denies subjective fever or chills. No cough, no hematuria dysuria hematemesis or hematochezia. At the time of examination patient does not appear to be in distress but still has mild to moderate chest pain. Course: Chest pain, atypical History of CAD History of aortic dissection CKD stage IV AAA Obesity, BMI 45.3 Hyperlipidemia Hypertension Depression Patient was admitted to telemetry, echocardiogram obtained which showed ejection fraction 55-60%, mild AR, trace MR/TR. Troponins were trended and were negative. Cardiology and vascular surgery consultations were obtained, no interventions warranted at this time. Chest pain appeared to be atypical in nature, with musculoskeletal component upon palpation. Patient was provided pain control and reported subjective control pain on discharge. No changes are made to her home medication regimen for her chronic medications. She was prescribed 3 days of Spencer for breakthrough pain, with instructions to follow-up with vascular surgery, cardiology, PCP. I spent 35 minutes coordinating this complex discharge Patient Condition at Discharge: Good Plan - Discharge Summary Discharge Rx Participant: Yes New Discharge Prescriptions: New HYDROcodone/APAP 5-325MG [Spencer 5-325] 1 tab PO Q4HR PRN 3 Days #18 tab PRN Reason: Pain Continue Acetaminophen Tab [Tylenol] 1,000 mg PO BID Multivitamins, Thera [Multivitamin (formulary)] 1 tab PO DAILY Aspirin EC [Ecotrin Low Dose] 81 mg PO DAILY Carvedilol [Coreg] 25 mg PO BID Atorvastatin [Lipitor] 40 mg PO DAILY Topiramate [Topamax] 50 mg PO BID NIFEdipine XL [Procardia XL] 60 mg PO DAILY DULoxetine HCL [Cymbalta] 60 mg PO DAILY Discharge Medication List Acetaminophen Tab [Tylenol] 1,000 mg PO BID 10/14/20 [History] Aspirin EC [Ecotrin Low Dose] 81 mg PO DAILY 10/14/20 [History] Atorvastatin [Lipitor] 40 mg PO DAILY 10/14/20 [History] Carvedilol [Coreg] 25 mg PO BID 10/14/20 [History] DULoxetine HCL [Cymbalta] 60 mg PO DAILY 10/14/20 [History] Multivitamins, Thera [Multivitamin (formulary)] 1 tab PO DAILY 10/14/20 [History] NIFEdipine XL [Procardia XL] 60 mg PO DAILY 10/14/20 [History] Topiramate [Topamax] 50 mg PO BID 10/14/20 [History] HYDROcodone/APAP 5-325MG [Spencer 5-325] 1 tab PO Q4HR PRN 3 Days #18 tab 10/16/20 [Rx] Follow up Appointment(s)/Referral(s): Gianni Santos MD [STAFF PHYSICIAN] - 1 Week (PLEASE CALL OFFICE AND SET UP APPOINTMENT TO BE SEEN IN 1 WEEK ) Leah Chamorro MD [Primary Care Provider] - 1-2 days (PLEASE CALL AND SET UP APPOINTMENT TO BE SEEN 1-2 DAYS) Patient Instructions/Handouts: Chest Pain (DC) Discharge Disposition: HOME SELF-CARE
[2020-10-16 13:28] VITALS: BP 110/55; PULSE 80; TEMP 97.8
== END 2020-10-16 13:42 | disposition home or self-care (01) | DRG 313 ==
LOC: EC 11:29 → 3SCARD 13:57
PROVIDERS: ADMIT Internal Medicine; ATTEND Internal Medicine
DX: R07.89 Other chest pain (principal); N18.4 Chronic kidney disease, stage 4 (severe); I69.351 Hemiplegia and hemiparesis following cerebral infarction affecting right dominant side; Z68.42 Body mass index [BMI] 45.0-49.9, adult; I25.10 Atherosclerotic heart disease of native coronary artery without angina pectoris; E66.01 Morbid (severe) obesity due to excess calories; Z20.822 Contact with and (suspected) exposure to COVID-19; E78.5 Hyperlipidemia, unspecified; K80.20 Calculus of gallbladder without cholecystitis without obstruction; I08.3 Combined rheumatic disorders of mitral, aortic and tricuspid valves; F32.9 Major depressive disorder, single episode, unspecified; R01.1 Cardiac murmur, unspecified; I12.9 Hypertensive chronic kidney disease with stage 1 through stage 4 chronic kidney disease, or unspecified chronic kidney disease; Z87.19 Personal history of other diseases of the digestive system; I71.2 Thoracic aortic aneurysm, without rupture; L91.0 Hypertrophic scar; M21.371 Foot drop, right foot; Z79.82 Long term (current) use of aspirin; Z79.899 Other long term (current) drug therapy; Z86.79 Personal history of other diseases of the circulatory system; Z95.1 Presence of aortocoronary bypass graft
CPT/HCPCS: 36415; 71046; 71275; 74174; 80053; 80061; 83735; 83880; 84484; 85025; 85379; 85610; 85730; 87635; 93005; 93306; 94660; 99285

== ENCOUNTER → 2020-10-25 | Outpatient (CLI) | payer MEDICARE ==
--- NOTE | 2020-10-25 09:39 | NM ---
EXAMINATION TYPE: NM hepatobiliary w EF DATE OF EXAM: 10/25/2020 COMPARISON: NONE HISTORY: R68.89 tumefactive slude/gravel in gall bladder TECHNIQUE: After the intravenous administration of 4.66 mCi Tc 99m Mebrofenin hepatobiliary scintigra phy is performed. Immediate images post injection. FINDINGS: There is satisfactory initial accumulation of tracer by the liver. The gallbladder is visualized wit hin 8 minutes. The small bowel activity is noted within 34 minutes. At one hour 8 ounces of oral en sure plus is given to mimic CCK and gallbladder ejection fraction is calculated at 74 %, in the wendy l range. Therefore there is no scintigraphic evidence of cystic or common bile duct obstruction to s uggest acute cholecystitis or gallbladder dyskinesia. IMPRESSION: Exam is within normal limits.
== END | disposition home or self-care (01) ==
LOC: RADNMMAIN 06:34
PROVIDERS: ATTEND Family Medicine
DX: R68.89 Other general symptoms and signs (principal)
CPT/HCPCS: 78226; A9537

== ENCOUNTER → 2020-11-04 | Outpatient (CLI) | payer MEDICARE | END | disposition home or self-care (01) | CPT/HCPCS: 77067 ==

== ENCOUNTER 2022-02-02 09:43 | Day surgery (SDC) | payer MEDICARE ==
[2022-02-01 12:22] VITALS: BMI 47.2
[2022-02-02] MEDS: LACTATED RINGERS 1,000 ML IV SCH ×2 (09:45→10:53)
[2022-02-02 10:03] VITALS: TEMP 96.9
[2022-02-02] MEDS ORDERED: LIDOCAINE 2% INJ 20 MG/ML (2 ML VIAL) ONE (10:54)
[2022-02-02] MEDS ORDERED: PROPOFOL 10 MG/ML 20 ML VIAL IV ONE (10:54)
--- NOTE | 2022-02-02 11:01 | P.PCN ---
Date of Procedure: 02/02/22 Procedure(s) Performed: BRIEF HISTORY: Patient is a 62-year-old pleasant white female scheduled for an elective colonoscopy as a part of skin for colon cancer and positive cologuard. PROCEDURE PERFORMED: Attempted Colonoscopy. PREOPERATIVE DIAGNOSIS: []. IV sedation per Anesthesia. PROCEDURE: After informed consent was obtained, the patient, was brought into the endoscopy unit. IV sedation was administered by Anesthesia under continuous monitoring. Digital rectal examination was normal. Initially the Olympus CF-160 flexible video colonoscope was then inserted in the rectum, gradually advanced into the sigmoid colon that there was solid stool noted in this area. I tried to advance the scope was then further because of extremely poor prep could not visualize any mucosa and hence the procedure was terminated.. The patient tolerated the procedure well. IMPRESSION: Poor prep and the scope was advanced into the sigmoid colon and the procedure terminated because of nonvisualization RECOMMENDATIONS: Findings of this examination were discussed with the patient as well as her family. She'll be rescheduled for colonoscopy at a later date..
[2022-02-02 11:08] VITALS: RESP 16
[2022-02-02 11:18] VITALS: BP 115/70; PULSE 77
== END 2022-02-02 11:40 | disposition home or self-care (01) ==
LOC: ORWHC2ENDO 09:43
PROVIDERS: ATTEND Internal Medicine Gastroenterology
DX: Z12.11 Encounter for screening for malignant neoplasm of colon (principal); R19.5 Other fecal abnormalities; Z79.899 Other long term (current) drug therapy; Z79.52 Long term (current) use of systemic steroids
CPT/HCPCS: 45330; J2704; J2001

== ENCOUNTER 2022-03-09 11:04 | Day surgery (SDC) | payer MEDICARE ==
[2022-03-06 16:40] VITALS: BMI 45.3
[~2022-03-09 11:04] MED LIST: LACTATED RINGERS 1,000 ML IV SCH; LIDOCAINE 1% (10MG/ML) FOR IV START INTRADERMA PRN; ONDANSETRON 4 MG/2 ML VIAL IVP PRN
[2022-03-09 11:57] VITALS: TEMP 96.9
[2022-03-09] MEDS ORDERED: PROPOFOL 10 MG/ML 20 ML VIAL IV ONE (12:45)
[2022-03-09] MEDS ORDERED: LIDOCAINE 2% INJ 20 MG/ML (2 ML VIAL) ONE (12:45)
--- NOTE | 2022-03-09 13:14 | P.PCN ---
Date of Procedure: 03/09/22 Procedure(s) Performed: BRIEF HISTORY: Patient is a 62-year-old pleasant female scheduled for an elective colonoscopy as a part of screening for colon cancer/positive cologuard : PROCEDURE PERFORMED: Colonoscopy biopsy and snare polypectomy PREOPERATIVE DIAGNOSIS: screening for colon cancer/positive cologuard IV sedation per Anesthesia. PROCEDURE: After informed consent was obtained, the patient, was brought into the endoscopy unit. IV sedation was administered by Anesthesia under continuous monitoring. Digital rectal examination was normal. Initially the Olympus CF-160 flexible video colonoscope was then inserted in the rectum, gradually advanced into the cecum without any difficulty. Careful examination was performed as the scope was gradually being withdrawn. Ileocecal valve and the appendiceal orifice were visualized and appeared normal. Prep was excellent. Mucosa of the cecum, ascending colon,appeared normal. In the hepatic flexure there was a 3 mm polyp removed by cold biopsy. Rest of the transverse colon, descending colon, sigmoid colon,appeared normal. In the sigmoid colon there was a 7 mm polyp removed by snare polypectomy.scattered sigmoid diverticulosis. Mucosa of the rectum appeared normal. Retroflexion was performed in the rectum and no lesions were seen. The patient tolerated the procedure well. IMPRESSION: 3 mm hepatic flexure polyp status post cold biopsy 7 mm sigmoid polyp status post polypectomy Scattered sigmoid diverticulosis RECOMMENDATIONS: Findings of this examination were discussed with the patient as well as her family. She was advised to follow with the biopsy results. If the biopsy reveals adenoma she can have a repeat colonoscopy in 5 years..
[2022-03-09 13:32] VITALS: BP 127/81; PULSE 89; RESP 16
== END 2022-03-09 14:05 | disposition home or self-care (01) ==
LOC: ORWHC2ENDO 11:04
PROVIDERS: ATTEND Internal Medicine Gastroenterology
DX: D12.3 Benign neoplasm of transverse colon (principal); K57.30 Diverticulosis of large intestine without perforation or abscess without bleeding; R19.5 Other fecal abnormalities; E78.5 Hyperlipidemia, unspecified; I10 Essential (primary) hypertension; M19.90 Unspecified osteoarthritis, unspecified site; G47.33 Obstructive sleep apnea (adult) (pediatric)
CPT/HCPCS: 88305; 45380; 45385; J2704; J2001

== ENCOUNTER → 2022-10-26 | Outpatient (CLI) | payer MEDICARE ==
[2022-10-26 21:06] LABS: HCT 38.9 % (37.2-46.3); HGB 12.1 d/dL (12.0-15.0); MCHC 31.1 d/dL (32.0-37.0); MCV 99.7 FL (80.0-97.0); Mean Platelet Volume 10.3 FL (9.5-12.2); NRBC Per 100 WBC 0 X 10*3/uL (0.00-0.01); Platelet Count 172 X 10*3/uL (140-440); WBC 4.24 X 10*3/uL (4.50-10.00)
[2022-10-26 21:19] LABS: Blood Urea Nitrogen 21.2 mg/dL (9.0-27.0); Chloride 102 mmol/L (96-109); Potassium 4.2 mmol/L (3.5-5.5); Sodium 141 mmol/L (135-145)
== END | disposition home or self-care (01) ==
LOC: LABPAT 12:49
PROVIDERS: ATTEND Internal Medicine Interventional Cardiology
DX: Z01.812 Encounter for preprocedural laboratory examination (principal); I35.1 Nonrheumatic aortic (valve) insufficiency; R06.02 Shortness of breath
CPT/HCPCS: 36415; 80051; 82565; 84520; 85027

== ENCOUNTER 2022-11-02 10:07 | Day surgery (SDC) | payer MEDICARE ==
[~2022-11-02 10:07] MED LIST changes: +ALPRAZolam 0.25 MG TAB PO PRN; +ALPRAZolam 0.5 MG TAB PO PRN; +ASPIRIN 325 MG TAB PO STA; +ATORVASTATIN 80 MG TAB PO STA; +HEPARIN SODIUM,PORCINE 10,000 UNIT in SODIUM CHLORIDE 0.9% 1,000 ML IRRIGATION PRN; +HEPARIN SODIUM,PORCINE 2,500 UNIT in SODIUM CHLORIDE 0.9% 250 ML IRRIGATION PRN; -LACTATED RINGERS 1,000 ML IV SCH; -LIDOCAINE 1% (10MG/ML) FOR IV START INTRADERMA PRN; +NITROGLYCERIN SL TABS 0.4 MG TAB SUBLINGUAL PRN; -ONDANSETRON 4 MG/2 ML VIAL IVP PRN; +SODIUM CHLORIDE 0.9% 1,000 ML in EMPTY BAG 1 BAG IV SCH
[2022-11-02] MEDS ORDERED: SODIUM CHLORIDE 0.9% 1,000 ML IV ONE (10:29)
[2022-11-02 10:44] LABS: Glucose,Whole Blood 122 mg/dL (70-110)
[2022-11-02 10:51] VITALS: RESP 16; TEMP 98
[2022-11-02] MEDS ORDERED: VERAPAMIL 2.5 MG/ML 2 ML AMP ONE (11:49)
[2022-11-02] MEDS ORDERED: fentaNYL (PF) 50 MCG/ML 2 ML AMP ONE (12:10)
[2022-11-02] MEDS ORDERED: IV FLUID CONTINUATION 700 ML IV ONE (12:10)
[2022-11-02] MEDS: BENZOCAINE SPRAY 1 CAN MUCOUS MEM ONE ×2 (12:36→12:52)
[2022-11-02] MEDS ORDERED: MIDAZOLAM 2 MG/2 ML VIAL IV ONE ×2 (12:54→12:56)
[2022-11-02] MEDS ORDERED: fentaNYL (PF) 50 MCG/ML 2 ML AMP IV ONE (12:55)
--- NOTE | 2022-11-02 13:13 | P.PCN ---
Date of Procedure: 11/02/22 Operative Findings: TRANSESOPHAGEAL ECHOCARDIOGRAM DRAMA THERAPIST: BABAK GRIFFITHS MD, RPVI INDICATION: Valvular heart disease SEDATION: Conscious sedation COMPLICATION: None LEVEL OF SEDATION Moderate to sedation length of 12 minutes PROCEDURE DESCRIPTION: After obtaining an informed consent, the patient was brought to transesophageal echocardiogram room. Pulse oximetry and heart monitors were attached to the patient. The patient throat was sprayed using lidocaine. The patient was turned into left lateral position. After that a bite guard was placed. After an appropriate conscious sedation was initiated, the transesophageal echocardiogram was advanced through a bite guard into the mid esophagus. A 2-D echocardiogram images, color Doppler images, continuous wave images, pulse-wave images, of various cardiac structure were performed. After that the transesophageal echocardiogram probe was advanced into the stomach and fixed to obtain transgastric view was. The probe was brought into the mid esophagus. Inter-atrial septum was interrogated using 2D images, color Doppler images, and then contrast study. After that transesophageal echocardiogram was withdrawn out and upon withdrawing the descending thoracic aorta all the way up to the ar ch was evaluated. FINDING: LV dimension and systolic function appeared to be within normal limits. Right ventricle appeared to be mildly dilated with normal function. The aortic valve is trileaflet valve with only moderate aortic insufficiency. The mitral valve appeared to be intact was moderate mitral regurgitation. There is moderate tricuspid regurgitation was identified. No evidence of pericardial effusion seen. CONCLUSION: 1. Normal biventricular systolic function. The left ventricular systolic function appeared to be in the range of 55% 2. Trileaflet aortic valve with no stenosis was moderate insufficiency 3. Normal mitral valve leaflets with moderate mitral insufficiency 4. Moderate tricuspid insufficiency 5. No evidence of pericardial effusion
[2022-11-02 14:12] VITALS: BP 128/78; PULSE 84
[2022-11-02 15:21] LABS: African American GFR (CKD) 29 (>60 ml/min/1.73 sqM); Anion Gap 15 mmol/L; Blood Urea Nitrogen 28 mg/dL (7-17); Calcium 9.4 mg/dL (8.4-10.2); Carbon Dioxide 20 mmol/L (22-30); Chloride 99 mmol/L (98-107); Glucose 136 mg/dL (74-99); Non-African American GFR(CKD) 25 (>60 ml/min/1.73 sqM); Potassium 4.4 mmol/L (3.5-5.1); Sodium 134 mmol/L (137-145)
== END 2022-11-02 14:40 | disposition home or self-care (01) ==
LOC: CATHCVL 10:07
PROVIDERS: ATTEND Internal Medicine Interventional Cardiology
DX: I08.3 Combined rheumatic disorders of mitral, aortic and tricuspid valves (principal)
CPT/HCPCS: 93312; 93320; 93325; 80048; J2250; J3010

== ENCOUNTER → 2023-01-01 | Outpatient (CLI) | payer MEDICARE ==
--- NOTE | 2023-01-02 08:05 | BD ---
EXAMINATION TYPE: Axial Bone Density DATE OF EXAM: 01/01/2023 CLINICAL HISTORY: 62 years old Female. ICD-10 CODE: Z78.0 ASYMPTOMATIC MENOPAUSAL STA Height: 60 in Weight: 228 lbs FRAX RISK QUESTIONS: Secondary Osteoporosis: 3. Menopause before 45: total hysterectomy age 33 Rheumatoid Arthritis: yes RISK FACTORS HISTORY OF: Active: yes Diet low in dairy products/other sources of calcium: yes Postmenopausal woman: total hysterectomy age 33 MEDICATIONS: Additional Medications: multi vitamin,high blood pressure meds, rheumatoid arthritis meds, pain meds, EXAM MEASUREMENTS: Bone mineral densitometry was performed using the [employer] System. Bone mineral density as measured about the Lumbar spine is: ----- L1-L4(G/cm2): 1.286 T Score Values are as follows: ----- L1: 0.5 ----- L2: -0.2 ----- L3: 0.9 ----- L4: 2.0 ----- L1-L4: 0.9 Z Score Values are as follows: ----- L1: 0.2 ----- L2: -0.5 ----- L3: 0.5 ----- L4: 1.7 ----- L1-L4: 0.6 Bone mineral density baseline Bone mineral density about the R hip (g/cm2): 1.103 Bone mineral density about the L hip (g/cm2): 1.162 T Score values are as follows: -----R Neck: -0.7 -----L Neck: -1.2 -----R Total: 0.8 -----L Total: 0.4 Z Score values are as follows: -----R Neck: -0.9 -----L Neck: -1.4 -----R Total: 0.1 -----L Total: -0.2 Bone mineral density baseline FRAX%s: The graph provided illustrates a 4.0% chance for a major osteoporotic fx and a 0.3% chance fo r the hips probability for fx in 10 years time. IMPRESSION: Osteopenia (T Score between -2.5 and -1). There is slightly increased risk of fracture and the patient may be considered for treatment. Re-Screen 2-5 years. NOTE: T-SCORE=SD OF THE YOUNG ADULT MEAN.
--- NOTE | 2023-01-02 10:09 | MM ---
Reason for Exam: Screening (asymptomatic). Last mammogram was performed 2 year(s) and 1 month(s) ago. Patient History: Menarche at age 7. First Full-Term at age 20. Left ovary removed at age 44. Right ovary removed at age 44. Hysterectomy at age 44. Postmenopausal. Risk Values: Anupama 5 year model risk: 1.6%. NCI Lifetime model risk: 6.2%. Prior Study Comparison: 11/04/2020 Bilateral Screening Mammogram, [facility]. Tissue Density: There are scattered fibroglandular densities. Findings: Analyzed By CAD. There is no suspicious group of microcalcifications or new suspicious mass in either breast. Overall Assessment: Negative, BI-RAD 1 Management: Screening Mammogram of both breasts in 1 year. A clinical breast exam by your physician is recommended on an annual basis and results should be correlated with mammographic findings. Note on Anupama scores and lifetime risk: 1. A Anupama score greater than 3% is considered moderate risk. If this is the case, consider specialist referral to assess eligibility for a risk reducing agent. If overall lifetime risk for the development of breast cancer is 20% or higher, the patient may qualify for future screening with alternating mammogram and breast MRI. Electronically signed and approved by: Ashwin Irby D.O.
== END | disposition home or self-care (01) ==
LOC: RADBDWWP 15:28
PROVIDERS: ATTEND Family Medicine
DX: Z12.31 Encounter for screening mammogram for malignant neoplasm of breast (principal); M85.852 Other specified disorders of bone density and structure, left thigh; Z78.0 Asymptomatic menopausal state
CPT/HCPCS: 77063; 77067; 77080

== ENCOUNTER → 2023-06-04 | Outpatient (CLI) | payer MEDICARE ==
[2023-06-04 15:38] LABS: African American GFR (CKD) 33 (>60 ml/min/1.73 sqM); Blood Urea Nitrogen 23 mg/dL (7-17); Non-African American GFR(CKD) 29 (>60 ml/min/1.73 sqM)
== END | disposition home or self-care (01) ==
LOC: RADCTMAIN 14:57
PROVIDERS: ATTEND Internal Medicine Interventional Cardiology
DX: I71.019 Dissection of thoracic aorta, unspecified (principal); I71.02 Dissection of abdominal aorta
CPT/HCPCS: 82565; 84520

== ENCOUNTER → 2024-02-12 | Outpatient (CLI) | payer MEDICARE ==
--- NOTE | 2024-02-13 20:01 | MM ---
Reason for Exam: Screening (asymptomatic). Last mammogram was performed 1 year(s) and 2 month(s) ago. Patient History: Menarche at age 7. First Full-Term at age 20. Left ovary removed at age 44. Right ovary removed at age 44. Hysterectomy at age 44. Postmenopausal. Risk Values: Anupama 5 year model risk: 1.7%. NCI Lifetime model risk: 5.7%. Prior Study Comparison: 11/04/2020 Bilateral Screening Mammogram, [facility]. 01/01/2023 Bilateral MG 3D screening mammo w/cad, [facility]. Tissue Density: There are scattered areas of fibroglandular density. Findings: Analyzed By CAD. There is no suspicious group of microcalcifications or new suspicious mass in either breast. Overall Assessment: Negative, BI-RAD 1 Management: Screening Mammogram of both breasts in 1 year. . Patient should continue monthly self-breast exams. A clinical breast exam by your physician is recommended on an annual basis. This exam should not preclude additional follow-up of suspicious palpable abnormalities. Note on Anupama scores and lifetime risk: 1. A Anupama score greater than 3% is considered moderate risk. If this is the case, consider specialist referral to assess eligibility for a risk reducing agent. 2. If overall lifetime risk for the development of breast cancer is 20% or higher, the patient may qualify for future screening with alternating mammogram and breast MRI. [facility], , 02/13/2024 7:59 PM. Electronically signed and approved by: Gian Wilson M.D. Radiologist
== END | disposition home or self-care (01) ==
LOC: RADMAMWWP 07:26
PROVIDERS: ATTEND Family Medicine
CPT/HCPCS: 77063; 77067

== ENCOUNTER → 2024-03-11 | Outpatient (CLI) | payer MEDICARE ==
--- NOTE | 2024-03-11 13:09 | US ---
EXAMINATION TYPE: US thyroid st tissue head/neck DATE OF EXAM: 03/11/2024 COMPARISON: NONE CLINICAL INDICATION: Female, 64 years old with history of R22.0 Swelling,mass,palpable abnormality; h oarse throat for 1 month TECHNIQUE: Grayscale and color Doppler imaging of the thyroid gland. FINDINGS: GLAND SIZE: Right Lobe: 3.5 x 1.2 x 1.4 cm Overall Parenchyma: homogeneous Left Lobe: 3.3 x 1.0 x 1.3 cm Overall Parenchyma: homogeneous Isthmus Thickness: 0.3 cm NODULES RIGHT: # of nodules measured on right: 0 LEFT: # of nodules measured on left: 1 1. 1.1 X 0.6 x 0.8 cm, lower lateral, mixed cystic and solid, anechoic nodule, which is wider than tall, with smooth margins, with echogenic foci. Prior size: [employer] ISTHMUS: # of nodules measured in the isthmus: 0 Bilateral neck scanned, no evidence of lymphadenopathy. IMPRESSION: Not Suspicious: No FNA 2017 ACR TI-RADS LEVEL: *Highest TI-RADS level nodule reported [email or web address] [facility], , 03/11/2024 1:07 PM
== END | disposition home or self-care (01) ==
LOC: RADUSWWP 06:47
PROVIDERS: ATTEND Family Medicine
DX: R22.0 Localized swelling, mass and lump, head (principal)
CPT/HCPCS: 76536

== ENCOUNTER → 2024-03-13 | Outpatient (CLI) | payer MEDICARE ==
[2024-03-13 09:31] LABS: African American GFR (CKD) 33 (>60 ml/min/1.73 sqM); Blood Urea Nitrogen 18 mg/dL (7-17); Non-African American GFR(CKD) 29 (>60 ml/min/1.73 sqM)
--- NOTE | 2024-03-13 10:11 | CT ---
EXAMINATION TYPE: CT neck chest without con DATE OF EXAM: 03/13/2024 9:53 AM COMPARISON: None. CLINICAL INDICATION: Female, 64 years old with history of R04.2 COUGH UP BLOOD R22.1 SWELLING R13.10 DYSPHAG, COUGHING UP BLOOD, DYSPHAGIA, SWELLING TECHNIQUE: Axial images at 3 mm thick sections. Reconstructed images in the coronal plane and sagitt al plane are reviewed. Contrast used: mL of , (none if empty) Oral contrast used: (none if empty) CT DLP: 1187 mGycm, Automated exposure control for dose reduction was used. FINDINGS: Lung windows appear clear. Tracheobronchial tree appears normal as visualized. Vocal cord level is sy mmetrical. Subglottic airway appears normal. Thyroid is visualized and is normal. There is aneurysmal dilatation of the distal aortic arch with transverse dimension of 6.4 cm. There i s some very faint linear opacity within the descending thoracic aorta. Some vascular wall calcificati on appears to be in the midline proximal abdominal aorta. Aortic dissection is present. This was pres ent on 10/14/2020 examination. Aneurysm has enlarged over the interval. Descending thoracic aorta at the main pulmonary artery is 2.7 cm. The main pulmonary artery the bifur cation is 3.4 cm. Underlying pulmonary hypertension may be present. No enlarged mediastinal or hilar adenopathy is evident. Mild coronary artery calcification is present . Left adrenal gland is thickened at 1.9 cm transverse dimension. Findings appear stable in comparison. Abdomen is otherwise unremarkable rate CT neck: The torus tubarius and fossa of Rosenmuller are normal. Control Tower Radio Operator spaces are normal. Para nasal sinuses and mastoid air cells are clear. Parotid glands appear normal and symmetrical. Submandibular glands, are normal. Parapharyngeal spac es are normal. No suspicious adenopathy is evident. The hypopharynx appears within normal limits. Vocal cord level appear symmetrical. Thyroid as visualized is normal. Osseous structures are normal. IMPRESSION: 1. Enlarging posterior aortic arch aneurysm currently measuring 6.4 cm. Previous measurement 5.2 cm . 2. Aortic dissection present previously. 3. Pulmonary hypertension. 4. Suspicious abnormality to account for hemoptysis is not identified. [facility], , 03/13/2024 10:08 AM
--- NOTE | 2024-03-13 12:05 | FL ---
EXAMINATION TYPE: FL barium swallow w video DATE OF EXAM: 03/13/2024 11:56 AM COMPARISON: None. CLINICAL INDICATION: Female, 64 years old with history of R04.2 COUGH UP BLOOD R22.1 SWELLING R13.10 DYSPHAG; A number of thin and thick substances were ingested under the care of the department of speech pathol ogy. There is no evidence of aspiration or penetration. There is no evidence of obstruction. DAP are not provided. IMPRESSION: 1. No evidence of aspiration or penetration. [facility], , 03/13/2024 12:03 PM
== END | disposition home or self-care (01) ==
LOC: RADCTMAIN 08:56
PROVIDERS: ATTEND Otolaryngology
DX: I27.20 Pulmonary hypertension, unspecified (principal); I71.22 Aneurysm of the aortic arch, without rupture; R09.89 Other specified symptoms and signs involving the circulatory and respiratory systems; R04.2 Hemoptysis; R13.10 Dysphagia, unspecified; R49.0 Dysphonia; I71.00 Dissection of unspecified site of aorta
CPT/HCPCS: 36415; 70490; 71250; 74230; 82565; 84520

== ENCOUNTER → 2024-03-18 | Outpatient (CLI) | payer MEDICARE ==
--- NOTE | 2024-03-18 10:33 | FL ---
EXAMINATION TYPE: FL barium swallow DATE OF EXAM: 03/18/2024 9:19 AM COMPARISON: Chest radiograph from same day. CLINICAL INDICATION:Female, 64 years old with history of R13.10 DYSPHAGIA, UNSPECIFIED; TECHNIQUE: The procedure was explained and patient history elicited. All patient questions were ans wered prior to start of procedure. Multiple spot fluoroscopic images of the esophagus were obtained a fter the oral ingestion of effervescent crystals and liquid barium as the contrast agent. Fluoroscopic time:Min 9 seconds Fluoroscopic images:0 Radiographs taken: 71 DAP: not reported [id number] FINDINGS: Esophagus demonstrates esophageal dysmotility with tertiary contractions and extremely delayed emptyi ng into the gastric lumen. Trickle flow was identified into the gastric lumen. Multiple swallow attem pts did not clear the esophagus. The exam was terminated at that time. IMPRESSION: Esophageal dysmotility with poor clearance of contents through the gastroesophageal junction. Correla te for achalasia versus other obstructive process at the gastroesophageal junction. [facility], , 03/18/2024 10:30 AM
== END | disposition home or self-care (01) ==
LOC: RADFLMAIN 08:35
PROVIDERS: ATTEND Otolaryngology
DX: K22.4 Dyskinesia of esophagus (principal); R13.10 Dysphagia, unspecified
CPT/HCPCS: 74220

== ENCOUNTER → 2024-03-30 | Outpatient (CLI) | payer MEDICARE ==
--- NOTE | 2024-03-30 14:27 | CT ---
EXAMINATION TYPE: CT angio abdomen pelvis CT DLP: 1691.80 mGycm, Automated exposure control for dose reduction was used. DATE OF EXAM: 03/30/2024 11:35 AM COMPARISON:CTA thoracoabdominal pelvis 10/14/2020. CLINICAL INDICATION:Female, 64 years old with history of thoracic aneurysm; r/u thoracic/abdominal ao rta aneurysm, hx of dissection without repair. TECHNIQUE: Multiple thin slice sub-millimeter images were obtained through the abdomen and pelvis bef ore and after administration of contrast. Patient was given Isovue 370, 100 cc intravenously. 3-D r econstructed images and maximum intensity projection images were obtained of the abdominal aorta and its branches. FINDINGS: CTA Abdomen and pelvis: Redemonstration of aortic dissection within the visualized descending thoraci c aorta extending into the abdominal aorta all the way to the distal abdominal aorta. This extends in to the proximal aspect of the left common iliac artery. This is stable from prior exam. There is patc hy contrast enhancement demonstrated within the false lumen. The true lumen demonstrates homogeneous enhancement. The descending thoracic aorta measures up to 4.3 cm in diameter. No evidence for abdomin al aortic aneurysm. The SMA appears to emanate from the true lumen. The celiac axis appears to emanate from the false lum en again. The right renal arteries bilaterally patent and emanates from the true lumen. 2 left renal arteries that are patent and emanate from the false lumen. The more distal larger left renal artery d emonstrates a dissection beginning at the origin and extending to its midportion which is may have be en present on prior exam. The SCARLET appears to emanate from the false lumen and is opacified. Both comm on iliac arteries are patent. The bilateral internal and external iliac arteries are patent. VISCERA: The liver, spleen, adrenal glands, kidneys, pancreas, and gallbladder are not optimally enha nced due the arterial phase utilized. LIVER: Unremarkable GALLBLADDER AND BILE DUCTS: Unremarkable. PANCREAS: Unremarkable. SPLEEN: Unremarkable. ADRENAL GLANDS: Right adrenal gland 1.7 cm lesion with attenuation consistent with a benign lipid brie h adenoma. Left adrenal gland 2.5 cm lesion with attenuation consistent with a lipid rich adenoma. KIDNEYS AND URETERS: No evidence of hydronephrosis or renal calculus. There are regions of cortical t hinning involving the right kidney likely related to prior ischemic insults. PELVIS BLADDER: Unremarkable REPRODUCTIVE: The uterus is surgically absent. ABDOMEN & PELVIS STOMACH AND BOWEL: Stomach and duodenum are unremarkable. Hyperdense stool is identified within the d istal colon extending into the rectum. Scattered distal colonic diverticulosis without evidence for a cute diverticulitis. No evidence of bowel obstruction. PERITONEUM: No evidence of pneumoperitoneum or free fluid. MUSCULOSKELETAL: No acute osseous abnormalities. Multilevel degenerative disc disease. Left L5 hemisa cralization. Facet arthropathy mid to lower lumbar spine. Prominent anterior endplates spondylosis mi d to lower thoracic spine. LYMPH NODES: No evidence for lymphadenopathy. SOFT TISSUE/ABDOMINAL WALL: Unremarkable LOWER CHEST: The visualized lung bases are clear. Elevation left hemidiaphragm. Median sternotomy wir es. Dilated main pulmonary measuring up to 3.5 cm which can be seen in the setting of pulmonary arter ial hypertension. IMPRESSION 1. Overall stable examination with aortic dissection involving the visualized descending thoracic ao rta and extending through the abdominal aorta into the left common iliac artery. There is contrast de monstrated within the false lumen again. The distal thoracic aorta is aneurysmal measuring up to 4.3 cm which is relatively stable. 2. The celiac access, left renal arteries, and SCARLET all arise from the false lumen. There is dissectio n identified within the larger left renal artery which may have been present on prior exam. 3. Regions of cortical thinning/insults to the left kidney redemonstrated related to #2. 4. Colonic diverticulosis without evidence for acute diverticulitis. [facility], , 03/30/2024 2:24 PM
== END | disposition home or self-care (01) ==
LOC: RADCTMAIN 10:08
PROVIDERS: ATTEND Surgery
DX: I71.012 Dissection of descending thoracic aorta (principal); I71.02 Dissection of abdominal aorta; K57.30 Diverticulosis of large intestine without perforation or abscess without bleeding; I27.21 Secondary pulmonary arterial hypertension
CPT/HCPCS: 74174; Q9967

== ENCOUNTER → 2024-03-30 | Outpatient (CLI) | payer MEDICARE ==
[~2024-03-30] MED LIST changes: -ALPRAZolam 0.25 MG TAB PO PRN; -ALPRAZolam 0.5 MG TAB PO PRN; -ASPIRIN 325 MG TAB PO STA; -ATORVASTATIN 80 MG TAB PO STA; -HEPARIN SODIUM,PORCINE 10,000 UNIT in SODIUM CHLORIDE 0.9% 1,000 ML IRRIGATION PRN; -HEPARIN SODIUM,PORCINE 2,500 UNIT in SODIUM CHLORIDE 0.9% 250 ML IRRIGATION PRN; -NITROGLYCERIN SL TABS 0.4 MG TAB SUBLINGUAL PRN; -SODIUM CHLORIDE 0.9% 1,000 ML in EMPTY BAG 1 BAG IV SCH; +SODIUM CHLORIDE 0.9% 250 ML in EMPTY BAG 1 BAG IV PRN; +SODIUM CHLORIDE 0.9% 500 ML 500 ML in EMPTY BAG 1 BAG IV PRN
[2024-03-30] MEDS: SODIUM CHLORIDE 0.9% 1,000 ML IV ONE (07:36)
[2024-03-30 07:39] VITALS: BP 120/74; PULSE 99; RESP 16; TEMP 98.1
[2024-03-30 10:33] LABS: African American GFR (CKD) 51 (>60 ml/min/1.73 sqM); Blood Urea Nitrogen 18 mg/dL (7-17); Non-African American GFR(CKD) 44 (>60 ml/min/1.73 sqM)
== END ==
LOC: PROCWHC3 07:22
PROVIDERS: ATTEND Surgery
DX: E86.0 Dehydration (principal); Z91.041 Radiographic dye allergy status
CPT/HCPCS: 36415; 82565; 84520; 96360; 96361

== ENCOUNTER → 2024-04-21 | Outpatient (CLI) | payer MEDICARE ==
--- NOTE | 2024-04-21 11:06 | CT ---
EXAMINATION TYPE: CT angio chest CT DLP: 1338.9 mGycm, Automated exposure control for dose reduction was used. DATE OF EXAM: 04/21/2024 10:48 AM COMPARISON: CT neck chest 03/13/2024, CT abdomen and pelvis 03/30/2024, CTA thoracolumbar abdominal pe lvis aorta 10/14/2020 CLINICAL INDICATION:Female, 64 years old with history of I71.012 thoracic aneurysm; thoracic aneurysm , history of repair TECHNIQUE/CONTRAST: CTA scan of the thorax is performed without and with IV Contrast, patient injected with 80 mL of Isov ue 370. 3D reconstructed images are created on an independent workstation and reviewed.. FINDINGS: Lungs/Pleura: No evidence of focal consolidation, pleural effusion or pneumothorax. Elevation of the left hemidiaphragm. Airway: Large airways are patent. Heart: Heart is within normal limits for size. No pericardial effusion. Small coronary artery calcifi cations. Vasculature: Bovine configuration of the aortic arch. Redemonstration of thoracoabdominal aortic diss ection beginning at the distal aortic arch and descending thoracic aorta extending from the level of the left subclavian artery. The origin of the left subclavian artery serves as a fenestration to help opacify the false lumen again. This again extends into the visualized abdominal aorta. Distal aortic arch is aneurysmal again measuring up to 5.7 cm (series 7, image 30). Previously measured 5.[address] There is prominent mural-based plaque/thrombus identified within the false lumen most promin ently in the aortic arch region. The descending thoracic aorta measures up to 3.8 cm, previously 3.7 cm. The descending thoracic aorta at the hiatus measures up to 3.0 cm, previously 3.3 cm. No distinct intramural hematoma. The celiac axis appears to again emanate from the false lumen. The right renal artery emanates from t he true lumen. The left renal artery emanates from the false lumen. The SMA appears to arise from the true lumen. No extension of the dissection flap into these vessels. The main pulmonary artery measures 3.7 cm which can be seen with pulmonary arterial hypertension. Mediastinum: No evidence of adenopathy. Post surgical changes. Musculoskeletal: No acute osseous abnormalities. Median sternotomy wires. Mild multilevel degenerativ e disc disease. Soft Tissues: Unremarkable. Lower neck: Left thyroid lobe 7 mm hypodense nodule. Upper Abdomen: Stable lipid rich adrenal adenomas with the right measuring 1.9 cm the left measuring 2.2 cm. Redemonstration of regions of cortical thinning involving the left kidney related to prior in jury. IMPRESSION: Redemonstration of Sunman B aortic dissection beginning at the level of the left subclavian artery and extending into the visualized abdominal aorta. Interval increase in size of aneurysm dilatation o f the distal aortic arch measuring up to 5.7 cm with prominent eccentric mural thrombus/thrombosis, p reviously 5.2 cm in 2020. [facility], , 04/21/2024 11:03 AM
== END | disposition home or self-care (01) ==
LOC: RADCTMAIN 09:44
PROVIDERS: ATTEND Surgery
DX: I71.012 Dissection of descending thoracic aorta (principal); I71.03 Dissection of thoracoabdominal aorta; Q25.49 Other congenital malformations of aorta
CPT/HCPCS: 71275; Q9967

== ENCOUNTER → 2024-04-21 | Outpatient (CLI) | payer MEDICARE ==
[~2024-04-21] MED LIST changes: +SODIUM CHLORIDE 0.9% 250 ML IV NR; -SODIUM CHLORIDE 0.9% 500 ML 500 ML in EMPTY BAG 1 BAG IV PRN
[2024-04-21 07:58] VITALS: BP 118/68; PULSE 102; RESP 18; TEMP 98.4
[2024-04-21] MEDS: SODIUM CHLORIDE 0.9% 500 ML 500 ML in EMPTY BAG 1 BAG IV PRN (08:07)
[2024-04-21 10:18] LABS: African American GFR (CKD) 46 (>60 ml/min/1.73 sqM); Blood Urea Nitrogen 17 mg/dL (7-17); Non-African American GFR(CKD) 40 (>60 ml/min/1.73 sqM)
== END ==
LOC: PROCWHC3 07:36
PROVIDERS: ATTEND Surgery
DX: I71.012 Dissection of descending thoracic aorta (principal); Z91.048 Other nonmedicinal substance allergy status
CPT/HCPCS: 82565; 84520; 96360; 96361

== ENCOUNTER → 2024-10-21 | Outpatient (CLI) | payer MEDICARE | END | disposition home or self-care (01) | LOC: LABWHC1 09:47 | PROVIDERS: ATTEND Urology | DX: D35.00 Benign neoplasm of unspecified adrenal gland (principal) | CPT/HCPCS: 36415; 82533; 83835 ==

== ENCOUNTER → 2024-11-03 | Outpatient (CLI) | payer MEDICARE ==
--- NOTE | 2024-11-07 18:29 | MR ---
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 COMPARISON: CT abdomen and pelvis 03/29/2025, CTA thoracoabdominal pelvis aorta 10/14/2020, renal ultr asound 10/10/2020 TECHNIQUE: Multiplanar multi-sequence imaging was performed without and with IV contrast. The patie nt was given 8 ccs of Gadobutrol intravenously and dynamic imaging was performed. Post IV contrast grant btraction images were also submitted for review. FINDINGS: LOWER CHEST: Mildly enlarged heart. Sternotomy wires. Elevation of the left hemidiaphragm. ABDOMEN Liver: No focal lesion or fatty infiltration. Noncirrhotic morphology. Gallbladder and Bile ducts: Cholelithiasis/sludge. No biliary ductal dilatation. Common bile duct is at the upper limits of normal measuring 7 mm. Pancreas: Unremarkable. Spleen: Unremarkable. Adrenal glands: Stable bilateral adrenal lesions with drop out of signal on phase imaging consistent with macroscopic fat. The right lesion measures 1.8 cm. The left lesion measures 2.2 cm. Consistent w ith lipid rich adenomas. Kidneys: No hydronephrosis. Simple right medial mid kidney cortical nonenhancing 1.2 cm cyst. There a re regions of cortical thinning involving the left kidney likely related to prior ischemic insults. L eft renal upper pole is 0.7 cm intrinsic T1 hyperintense lesion. No evidence for enhancement on subtr action imaging. Consistent with a proteinaceous or hemorrhagic cyst. Right renal anterior upper pole cortical enhancing 0.8 cm lesion (series 901, image 296). There is some washout identified. The renal veins and IVC appear unremarkable. Stomach and Bowel: No evidence for obstruction. Distal colonic diverticulosis without evidence for ac argenis diverticulitis. Peritoneum: No evidence of pneumoperitoneum, free fluid, or adenopathy. Vasculature: Redemonstration of Goodwell B aortic dissection within the visualized thorax extending i nto the abdominal aorta and into the left common iliac artery. No abdominal aortic aneurysm. Aneurysm al dilatation of the descending thoracic aorta at the hiatus measuring up to 3.5 cm again. The SMA ap pears to originate off the true lumen. The celiac axis appears to emanate off the false lumen. The ri ght renal artery origin is off the true lumen while the 2 left renal arteries originate off the false lumen. Contrast does opacify the false lumen beginning near the hiatus. Abdominal wall: Unremarkable. Musculoskeletal: The osseous structures appear intact. IMPRESSION: 1. Enhancing right renal upper pole cortical subcentimeter lesion. This is concerning for renal cell carcinoma versus other etiologies. 2. Bilateral Bosniak 1 and 2 renal cysts. 3. Regions of cortical thinning involving the left kidney likely related to ischemic injury. 4. Known Goodwell B aortic dissection extending from the visualized descending thoracic aorta into t he left common iliac artery. The left renal artery originates off the false lumen and likely contribu ting to #3. 5. Bilateral benign lipid rich adrenal adenomas. 6. Cholelithiasis. [facility], , 11/07/2024 6:26 PM
== END | disposition home or self-care (01) ==
LOC: RADMRIMAIN 16:26
PROVIDERS: ATTEND Urology
DX: D41.01 Neoplasm of uncertain behavior of right kidney (principal); N28.1 Cyst of kidney, acquired; K80.20 Calculus of gallbladder without cholecystitis without obstruction; I71.012 Dissection of descending thoracic aorta; D35.02 Benign neoplasm of left adrenal gland; D35.01 Benign neoplasm of right adrenal gland
CPT/HCPCS: 74183; A9585

== ENCOUNTER → 2024-11-19 | Outpatient (CLI) | payer MEDICARE | END | disposition home or self-care (01) | LOC: LABWHC1 08:15 | PROVIDERS: ATTEND Urology | DX: D35.00 Benign neoplasm of unspecified adrenal gland (principal) | CPT/HCPCS: 36415; 82533 ==